=== PATIENT | female | born 1985 | race Caucasian/White ===

== ENCOUNTER 2018-10-23 08:47 | Emergency (ER) | payer OTHER ==
[~2018-10-23] VITALS: Ht 162.6 cm; Wt 79.8 kg
[2018-10-23 08:55] VITALS: Ht 162.6 cm; Wt 79.8 kg
[2018-10-23 09:50] VITALS: BP 130/78
== END 2018-10-23 10:32 | disposition home or self-care (01) ==
LOC: ED 08:47
DX: G56.01 Carpal tunnel syndrome, right upper limb (principal)
CPT/HCPCS: J1885

== ENCOUNTER 2019-01-20 21:01 | Emergency (ER) | payer OTHER | END 2019-01-20 22:31 | disposition left against medical advice (07) | LOC: ED 21:01 | DX: Z53.21 Procedure and treatment not carried out due to patient leaving prior to being seen by health care provider (principal) ==

== ENCOUNTER 2019-01-26 05:11 | Emergency (ER) | payer OTHER ==
[~2019-01-26] VITALS: Ht 162.6 cm; Wt 71.7 kg
[2019-01-26 05:15] VITALS: Ht 162.6 cm; Wt 71.7 kg
[2019-01-26 07:26] LABS: CALCIUM 8.4 mg/dL (8.5-10.1); CARBON DIOXIDE 18.8 mmol/L (21-32); CHLORIDE SERUM 108 mmol/L (98-107); CREATININE SERUM 0.8 mg/dL (0.6-1.0); GFR1 > 60 mL/min; GLUCOSE SERUM 105 mg/dL (74-106); POTASSIUM SERUM 3.2 mmol/L (3.5-5.1); SODIUM SERUM 141 mmol/L (136-145)
[2019-01-26 07:29] LABS: BASOPHIL % 0.2 % (0-2); PLATELET COUNT 305 x10^3mcL (130-400); RED CELL DISTRIBUTION WIDTH 13.7 % (11.5-14.5)
[2019-01-26 07:30] LABS: ALBUMIN 3.9 g/dL (3.4-5.0); ALKALINE PHOSPHATASE 81 U/L (46-116); ALT/SGPT 25 U/L (14-59); AMYLASE 56 U/L (25-115); AST/SGOT 16 U/L (15-37); BILIRUBIN TOTAL 0.71 mg/dL (0.20-1.00); LIPASE 201 IU/L (73-393); TOTAL PROTEIN, SERUM 7.6 g/dL (6.4-8.2)
[2019-01-26 08:08] LABS: AMPHETAMINE QUAL UR NONE DETECTED (See below)
[2019-01-26 09:18] VITALS: BP 117/70
== END 2019-01-26 09:18 | disposition home or self-care (01) ==
LOC: ED 05:11
PROVIDERS: Specialist
DX: E87.6 Hypokalemia (principal); E86.0 Dehydration; R11.10 Vomiting, unspecified; F20.9 Schizophrenia, unspecified; F32.9 Major depressive disorder, single episode, unspecified; K58.9 Irritable bowel syndrome, unspecified
CPT/HCPCS: G0480; J1630; J1885; J2060; J7030; Q0092; Q0162

== ENCOUNTER 2019-02-04 15:42 | Emergency (ER) | payer OTHER ==
[~2019-02-04] VITALS: Ht 162.6 cm; Wt 78.9 kg
[2019-02-04 15:51] VITALS: Ht 162.6 cm; Wt 78.9 kg
[2019-02-04 20:07] VITALS: BP 125/85
== END 2019-02-04 20:08 | disposition home or self-care (01) ==
LOC: ED 15:42
DX: G43.909 Migraine, unspecified, not intractable, without status migrainosus (principal); K58.9 Irritable bowel syndrome, unspecified; F20.9 Schizophrenia, unspecified; F32.9 Major depressive disorder, single episode, unspecified
CPT/HCPCS: J0780; J1200; J1885; J2405; J2765; J3030; J7030

== ENCOUNTER 2019-09-20 10:59 | Emergency (ER) | payer OTHER ==
[~2019-09-20] VITALS: Ht 162.6 cm; Wt 69.9 kg
[2019-09-20 11:18] VITALS: Ht 162.6 cm; Wt 69.9 kg
[2019-09-20 15:18] VITALS: BP 117/58
== END 2019-09-20 15:19 | disposition home or self-care (01) ==
LOC: ED 10:59
DX: M62.838 Other muscle spasm (principal); K58.9 Irritable bowel syndrome, unspecified; F20.0 Paranoid schizophrenia; F31.9 Bipolar disorder, unspecified; F17.210 Nicotine dependence, cigarettes, uncomplicated
CPT/HCPCS: 99406; J1100; J1885; J7030